=== PATIENT | male | born 1970 | race Caucasian/White ===

== ENCOUNTER 2018-01-14 15:44 | Emergency (ER) | payer MEDICAID ==
[2015-08-27 09:55] VITALS: BMI 30.5
[~2018-01-14 15:44] MED LIST: FLAGYL 500500 MG/100 PO; HYDROCODONE-APA1 TAB PO; LEVAQUIN PREMI750 MG PO; ONDANSETRON4 MG/2 M3 PO
== END 2018-01-14 16:25 | disposition home or self-care (01) ==
LOC: D.ER 15:44
DX: M79.672 Pain in left foot (principal); M25.562 Pain in left knee; M25.561 Pain in right knee; M25.512 Pain in left shoulder; M25.511 Pain in right shoulder; M79.642 Pain in left hand; M79.641 Pain in right hand